=== PATIENT | female | born 1985 | race Two or more races ===

== ENCOUNTER 2017-04-15 21:59 | Emergency (ER) | payer SELFPAY ==
[~2017-04-15] VITALS: Ht 167.6 cm; Wt 104.3 kg
[2017-04-16 01:00] VITALS: BP 152/80
== END 2017-04-16 01:31 ==
LOC: ER 21:59
DX: I10 Essential (primary) hypertension (principal); E11.9 Type 2 diabetes mellitus without complications; Z02.2 Encounter for examination for admission to residential institution

== ENCOUNTER 2023-07-25 13:26 | Emergency (ER) | payer MEDICAID ==
[~2023-07-25] VITALS: Ht 167.6 cm; Wt 88.3 kg
[2023-07-25] MEDS ORDERED: AUG875T PO (14:17)
[2023-07-25] MEDS: cloNIDine HCL 0.1 MG TAB PO ONE ×2 (14:26→14:27)
[2023-07-25] MEDS: TETANUS-DIPTH-ACEL PERTUSSIS 0.5ML SYR Tdap IM ONE (14:27)
[2023-07-25 14:52] VITALS: BP 200/115; PULSE 94; RESP 18; TEMP 97.4; O2SAT 97
== END 2023-07-25 15:28 | disposition left against medical advice (07) ==
LOC: ER 13:26
DX: S81.852A Open bite, left lower leg, initial encounter (principal); I10 Essential (primary) hypertension; E11.9 Type 2 diabetes mellitus without complications; Z79.2 Long term (current) use of antibiotics; W54.0XXA Bitten by dog, initial encounter; Y93.89 Activity, other specified; Y92.89 Other specified places as the place of occurrence of the external cause; Y99.8 Other external cause status
CPT/HCPCS: 73590; 90471; 90715; 93005